=== PATIENT | female | born 1950 | race Caucasian/White ===

== ENCOUNTER 2017-07-27 17:54 | Emergency (ER) | payer OTHER ==
--- NOTE | 2017-07-27 18:19 | EDM.PDOC ---
ED HPI GENERAL MEDICAL PROBLEM - General Chief Complaint: Cardiovascular Problem Stated Complaint: CHEST PAINS Time Seen by Provider: 07/27/17 18:14 Source of Information: Reports: Patient, Provider History Limitations: Reports: No Limitations - History of Present Illness INITIAL COMMENTS - FREE TEXT/NARRATIVE: 66 yo white female sent to ED by medical provider for two days of Chest Heaviness. Pt. is s/p hip surgery one month ago and has not been compliant with anti-coagulant medication. Pt. found to have elevated D-dimer to [address] scan show filling defect in right atrium. Onset: Today Onset Date: 07/26/17 Onset Time: 12:00 Duration: Hour(s): Location: Reports: Chest Severity: Moderate Improves with: Reports: None Worsens with: Reports: None Associated Symptoms: Reports: Chest Pain - Related Data Allergies Allergy/AdvReac Type Severity Reaction Status Date / Time codeine Allergy Nausea and Verified 03/12/14 10:40 Vomiting diazepam [From Valium] Allergy Nausea and Verified 03/12/14 10:40 Vomiting zolpidem tartrate Allergy Cannot Verified 03/12/14 10:40 [From Ambien] Remember Home Meds: Home Meds Benzonatate 100 mg PO Q6HR PRN 03/12/14 [History] Levothyroxine 112 mcg PO DAILY 03/12/14 [History] Losartan/Hydrochlorothiazide [Losartan-HCTZ 100-25 MG] 1 each PO DAILY 03/12/14 [History] Naproxen Sodium 220 mg PO Q12HR PRN 03/12/14 [History] Omeprazole 20 mg PO DAILY 03/12/14 [History] Oxybutynin [Oxybutynin ER] 5 mg PO DAILY 03/12/14 [History] Simvastatin [Zocor] 40 mg PO BEDTIME 03/12/14 [History] Venlafaxine [Effexor XR] 150 mg PO DAILY 03/12/14 [History] Social & Family History - Alcohol Use Days Per Week of Alcohol Use: 0 - Recreational Drug Use Recreational Drug Use: No Drug Use in Last 12 Months: No ED ROS GENERAL - Review of Systems Review Of Systems: See Below Constitutional: Reports: No Symptoms HEENT: Reports: No Symptoms Respiratory: Reports: No Symptoms Cardiovascular: Reports: Chest Pain Endocrine: Reports: No Symptoms GI/Abdominal: Reports: No Symptoms : Reports: No Symptoms Musculoskeletal: Reports: No Symptoms Skin: Reports: No Symptoms Neurological: Reports: No Symptoms Psychiatric: Reports: No Symptoms Hematologic/Lymphatic: Reports: No Symptoms Immunologic: Reports: No Symptoms ED EXAM, GENERAL - Physical Exam Exam: See Below Exam Limited By: No Limitations General Appearance: Alert, No Apparent Distress Eye Exam: Bilateral Eye: EOMI, PERRL Ears: Normal External Exam Nose: Normal Inspection Throat/Mouth: Normal Inspection, Normal Oropharynx Head: Atraumatic Neck: Normal Inspection Respiratory/Chest: No Respiratory Distress Cardiovascular: Normal Peripheral Pulses, Regular Rate, Rhythm, No Edema Peripheral Pulses: 2+: Femoral (L), Femoral (R), Popliteal (L), Popliteal (R) GI/Abdominal: Normal Bowel Sounds, Soft Extremities: Normal Inspection Neurological: Alert, Oriented, CN II-XII Intact Psychiatric: Normal Affect Skin Exam: Warm, Dry Lymphatic: No Adenopathy Departure - Departure Time of Disposition: 18:19 Disposition: DC/Tfer to Other Reason for Transfer *Q: Other (Pt. need cardiac echo) Condition: Good Clinical Impression: Elevated d-dimer, Filling defect on imaging study Forms: ED Department Discharge, Interfacility Transfer SHIN
[2017-07-27] MEDS ORDERED: Enoxaparin 100 MG/1 ML Syringe SUBCUT ONE (18:25)
[2017-07-27] MEDS ORDERED: Sodium Chloride 0.9% 1,000 ML IV SCH (19:00)
[2017-07-27 19:51] VITALS: BP 145/82
== END 2017-07-27 19:10 | disposition other institution (70) ==
LOC: DL.ED 17:54
DX: R79.1 Abnormal coagulation profile (principal); R93.1 Abnormal findings on diagnostic imaging of heart and coronary circulation; Z88.5 Allergy status to narcotic agent; Z88.8 Allergy status to other drugs, medicaments and biological substances; Z79.899 Other long term (current) drug therapy
CPT/HCPCS: 96372; 99285; J1650; J7030

== ENCOUNTER 2018-01-14 12:37 | Emergency (ER) | payer OTHER ==
[2018-01-14 12:43] VITALS: BP 125/63
--- NOTE | 2018-01-14 13:29 | EDM.PDOC ---
Scribed by Alexandra Villareal 01/14/18 1328 for Javon Zuniga MD ED HPI GENERAL MEDICAL PROBLEM - General Chief Complaint: Lower Extremity Injury/Pain Stated Complaint: [id number] SPRAINED RIGHT ANKLE Time Seen by Provider: 01/14/18 12:50 Source of Information: Reports: Patient, RN, RN Notes Reviewed History Limitations: Reports: No Limitations - History of Present Illness INITIAL COMMENTS - FREE TEXT/NARRATIVE: Presents to ER by POV with c/o injury to Rt ankle sustained this morning from a ground level fall in her bathroom. Denies any other injury. Onset: Today Duration: Constant Location: Reports: Lower Extremity, Right Quality: Reports: Ache Severity: Moderate Improves with: Reports: Immobilization Worsens with: Reports: Movement (and wt bearing) Associated Symptoms: Reports: No Other Symptoms Right Ankle Pain Score (Numeric/FACES): 6 - Related Data Allergies Allergy/AdvReac Type Severity Reaction Status Date / Time codeine Allergy Nausea and Verified 01/14/18 12:43 Vomiting diazepam [From Valium] Allergy Nausea and Verified 01/14/18 12:43 Vomiting zolpidem tartrate Allergy Cannot Verified 01/14/18 12:43 [From Ambien] Remember Home Meds: Home Meds Levothyroxine 112 mcg PO DAILY 03/12/14 [History] Losartan/Hydrochlorothiazide [Losartan-HCTZ 100-25 MG] 1 each PO DAILY 03/12/14 [History] Naproxen Sodium 220 mg PO Q12HR PRN 03/12/14 [History] Omeprazole 20 mg PO DAILY 03/12/14 [History] Oxybutynin [Oxybutynin ER] 10 mg PO DAILY 03/12/14 [History] Simvastatin [Zocor] 40 mg PO BEDTIME 03/12/14 [History] Venlafaxine [Effexor XR] 150 mg PO DAILY 03/12/14 [History] Hydroxychloroquine Sulfate [Plaquenil] 200 mg PO DAILY 01/14/18 [History] metFORMIN [Glucophage] 500 mg PO BIDMEALS 01/14/18 [History] Past Medical History Cardiovascular History: Reports: High Cholesterol Genitourinary History: Reports: Urinary Incontinence Musculoskeletal History: Reports: Back Pain, Chronic, Osteoarthritis Psychiatric History: Reports: Depression Endocrine/Metabolic History: Reports: Hypothyroidism - Past Surgical History Musculoskeletal Surgical History: Reports: Hip Replacement Social & Family History - Tobacco Use Smoking Status *Q: Never Smoker Second Hand Smoke Exposure: No - Alcohol Use Days Per Week of Alcohol Use: 0 - Recreational Drug Use Recreational Drug Use: No Drug Use in Last 12 Months: No - Living Situation & Occupation Living situation: Reports: with Family Review of Systems - Review of Systems Review Of Systems: ROS reveals no pertinent complaints other than HPI. ED EXAM, GENERAL - Physical Exam Exam: See Below Exam Limited By: No Limitations General Appearance: Alert, WD/WN, No Apparent Distress Head: Atraumatic, Normocephalic Neck: Normal Inspection Respiratory/Chest: No Respiratory Distress Extremities: No Pedal Edema, Normal Capillary Refill, Other (Rt laterat ankle with minimal swelling, no visible bruising, skin is intact. Focal tenderness overlying Rt distal fibula and malleolus.) Neurological: Alert, Oriented, Normal Cognition, No Motor/Sensory Deficits Psychiatric: Normal Affect, Normal Mood Skin Exam: Warm, Dry, Intact, Normal Color, No Rash Course - Vital Signs Last Recorded V/S: Last Vital Signs Temp 36.6 C 01/14/18 12:39 Pulse 88 01/14/18 12:39 Resp 18 01/14/18 12:39 BP 125/63 01/14/18 12:39 Pulse Ox 98 01/14/18 12:39 - Radiology Interpretation Free Text/Narrative:: Xray Rt ankle: nondisplaced distal fibula fracture, see Rad. report. Departure - Departure Time of Disposition: 13:17 Disposition: Home, Self-Care 01 Condition: Fair Clinical Impression: Ankle fracture, right Qualifiers: Encounter type: initial encounter Fracture type: closed Qualified Code(s): S82.891A - Other fracture of right lower leg, initial encounter for closed fracture - Discharge Information Instructions: Ankle Fracture, [id number] Forms: ED Department Discharge Additional Instructions: Rest, ice and elevate the right ankle. Wear the splint boot, remove only to shower. No weight bearing on right foot, use crutches. Call [facility] Monday to schedule an appointment with Dr. Garcia. I have read and agree with the documentation that has been completed regarding this visit. By signing this record, I attest that the documentation was completed in my physical presence and is an accurate record of the encounter.
== END 2018-01-14 13:25 | disposition home or self-care (01) ==
LOC: DL.ED 12:37
DX: S82.891A Other fracture of right lower leg, initial encounter for closed fracture (principal); S82.831A Other fracture of upper and lower end of right fibula, initial encounter for closed fracture; E78.00 Pure hypercholesterolemia, unspecified; E03.9 Hypothyroidism, unspecified; F32.9 Major depressive disorder, single episode, unspecified; Z79.899 Other long term (current) drug therapy; Z88.8 Allergy status to other drugs, medicaments and biological substances; Z88.5 Allergy status to narcotic agent; W18.30XA Fall on same level, unspecified, initial encounter; Y92.89 Other specified places as the place of occurrence of the external cause
CPT/HCPCS: 73610-RT; 99283

== ENCOUNTER 2019-03-25 23:16 | Emergency (ER) | payer OTHER ==
[2019-03-25] MEDS ORDERED: Ondansetron 4 MG Tab.DIS PO ONE (23:17)
[2019-03-25] MEDS ORDERED: Sodium Chloride 0.9% 1,000 ML IV ONE (23:54)
[2019-03-26] LABS: ANION GAP 16.5; CHLORIDE,CL 99 mmol/L (101-111); SODIUM,NA 138 mmol/L (135-145)
[2019-03-26] MEDS ORDERED: Potassium Chloride 20 MEQ in Premix Bag 1 BAG IV ONE (00:09)
--- NOTE | 2019-03-26 02:29 | EDM.PDOC ---
ED HPI GENERAL MEDICAL PROBLEM - General Chief Complaint: Gastrointestinal Problem Stated Complaint: AMBULANCE-GASTRO Time Seen by Provider: 03/25/19 23:25 Source of Information: Reports: Patient History Limitations: Reports: No Limitations - History of Present Illness INITIAL COMMENTS - FREE TEXT/NARRATIVE: ED via EMS with c/o chills and vomiting multiple times tonight, yellow liquid with food. Notes lower abdominal pain and some burning with urination today. Hs hx of frequent UTI's Contacted urologist at [facility] this afternoon and was scheduled to have UA done tomorrow. Zofran given by EMS, nausea improving. - Related Data Allergies Allergy/AdvReac Type Severity Reaction Status Date / Time codeine Allergy Nausea and Verified 03/25/19 23:28 Vomiting diazepam [From Valium] Allergy Nausea and Verified 03/25/19 23:28 Vomiting zolpidem tartrate Allergy Cannot Verified 03/25/19 23:28 [From Ambien] Remember Home Meds: Home Meds Levothyroxine 100 mcg PO DAILY 03/12/14 [History] Losartan/Hydrochlorothiazide [Losartan-HCTZ 100-25 MG] 1 each PO DAILY 03/12/14 [History] Naproxen Sodium 220 mg PO Q12HR PRN 03/12/14 [History] Omeprazole 20 mg PO DAILY 03/12/14 [History] Oxybutynin [Oxybutynin ER] 10 mg PO DAILY 03/12/14 [History] Venlafaxine [Effexor XR] 150 mg PO DAILY 03/12/14 [History] Hydroxychloroquine Sulfate [Plaquenil] 200 mg PO BID 01/14/18 [History] metFORMIN [Glucophage] 500 mg PO BIDMEALS 01/14/18 [History] Azelastine/Fluticasone [Dymista Nasal [place]] 2 sprays NASBOTH DAILY 03/25/19 [ History] Celecoxib 200 mg PO DAILY 03/25/19 [History] Mirabegron [Myrbetriq] 50 mg PO DAILY 03/25/19 [History] Nabumetone [Relafen] 750 mg PO BID 03/25/19 [History] Rosuvastatin [Crestor] 10 mg PO DAILY 03/25/19 [History] Past Medical History Cardiovascular History: Reports: High Cholesterol Genitourinary History: Reports: Urinary Incontinence Musculoskeletal History: Reports: Back Pain, Chronic, Osteoarthritis Psychiatric History: Reports: Depression Endocrine/Metabolic History: Reports: Hypothyroidism - Past Surgical History GI Surgical History: Reports: Cholecystectomy Musculoskeletal Surgical History: Reports: Hip Replacement Social & Family History - Tobacco Use Smoking Status *Q: Never Smoker - Caffeine Use Caffeine Use: Reports: Coffee - Recreational Drug Use Recreational Drug Use: No - Living Situation & Occupation Living situation: Reports: with Family ED ROS GENERAL - Review of Systems Review Of Systems: ROS reveals no pertinent complaints other than HPI. ED EXAM, GI/ABD - Physical Exam Exam: See Below Exam Limited By: No Limitations General Appearance: Alert, No Apparent Distress, Obese Ears: Normal External Exam Nose: Normal Inspection Throat/Mouth: Normal Inspection Head: Atraumatic, Normocephalic Neck: Normal Inspection Respiratory/Chest: No Respiratory Distress, Lungs Clear, Normal Breath Sounds Cardiovascular: Normal Peripheral Pulses, Regular Rate, Rhythm GI/Abdominal Exam: Normal Bowel Sounds, No Organomegaly Back Exam: Normal Inspection, Full Range of Motion. No: CVA Tenderness (L), CVA Tenderness (R) Extremities: Normal Inspection, Normal Range of Motion Neurological: Alert, Oriented, Normal Cognition Psychiatric: Normal Affect, Normal Mood Skin Exam: Warm, Dry, Intact, Normal Color Course - Vital Signs Last Recorded V/S: Last Vital Signs Temp 99.0 F 03/26/19 02:39 Pulse 105 H 03/26/19 02:39 Resp 20 03/26/19 02:39 BP 119/60 03/26/19 02:39 Pulse Ox 96 03/26/19 02:39 - Orders/Labs/Meds Orders: Active Orders 24 hr Category Date Time Status CULTURE URINE [RM] Stat Lab 03/26/19 00:08 Received Labs: Laboratory Tests 03/25/19 03/25/19 03/25/19 Range/Units 23:28 23:35 23:35 WBC 12.5 H (5.0-10.0) 10^3/uL RBC 4.10 L (4.2-5.4) 10^6/uL Hgb 11.7 L (12.0-16.0) g/dL Hct 36.0 L (37.0-47.0) % MCV 87.8 (80-100) fL MCH 28.5 (27.0-34.0) pg MCHC 32.5 L (33.0-35.0) g/dL Plt Count 300 (150-450) 10^3/uL Neut % (Auto) 88.5 H (42.2-75.2) % Lymph % (Auto) 5.9 L (20.5-50.1) % [place] % (Auto) 3.7 (2-8) % Eos % (Auto) 1.5 (1.0-3.0) % Baso % (Auto) 0.4 (0.0-1.0) % Sodium 138 (135-145) mmol/L Potassium 2.5 L (3.6-5.0) mmol/L Chloride 99 L (101-111) mmol/L Carbon Dioxide 25.0 (21.0-31.0) mmol/L Anion Gap 16.5 BUN 11 (7-18) mg/dL Creatinine 0.7 (0.6-1.3) mg/dL Est Cr Clr Drug Dosing 67.34 mL/min Estimated GFR (MDRD) > 60 BUN/Creatinine Ratio 15.71 Glucose 149 H (74-105) mg/dL Calcium 8.2 L (8.4-10.2) mg/dl Total Bilirubin 0.5 (0.2-1.0) mg/dL AST 30 (10-42) IU/L ALT 22 (10-60) IU/L Alkaline Phosphatase 47 (42-121) IU/L Total Protein 6.6 L (6.7-8.2) g/dl Albumin 3.6 (3.2-5.5) g/dl Globulin 3.0 Albumin/Globulin Ratio 1.20 Amylase 40 (28-100) U/L Lipase 33 (22-51) U/L Urine Color Yellow (YELLOW) Urine Appearance Cloudy (CLEAR) Urine pH 6.0 (5.0-9.0) Ur Specific [place] 1.010 (1.005-1.030) Urine Protein Negative (NEGATIVE) Urine Glucose (UA) Negative (NEGATIVE) Urine Ketones Negative (NEGATIVE) Urine Occult Blood Moderate H (NEGATIVE) Urine Nitrite Negative (NEGATIVE) Urine Bilirubin Negative (NEGATIVE) Urine Urobilinogen 0.2 (0.2-1.0) mg/dL Ur Leukocyte Esterase Moderate H (NEGATIVE) Urine RBC 10-20 H /HPF Urine WBC >100 H (0-5/HPF) /HPF Ur Epithelial Cells Occasional /HPF Amorphous Sediment Rare (0/HPF) /HPF Urine Bacteria Moderate H (0-FEW/HPF) /HPF Urine Mucus Rare /LPF Meds: Medications Discontinued Medications Generic Name Dose Route Start Last Admin Trade Name John PRN Reason Stop Dose Admin Sodium Chloride 1,000 mls @ 999 mls/hr 03/25/19 23:54 03/25/19 23:59 Normal Saline IV 03/26/19 00:54 999 mls/hr .BOLUS ONE Administration Potassium Chloride 20 meq/ 100 mls @ 50 mls/hr 03/26/19 00:09 03/26/19 00:26 Premix IV 03/26/19 02:08 50 mls/hr ONETIME ONE Administration Ceftriaxone Sodium 1,000 mg/ 100 mls @ 200 mls/hr 03/26/19 00:36 03/26/19 00: 54 Sodium Chloride IV 03/26/19 01:05 200 mls/hr ONETIME ONE Administration Ondansetron HCl Confirm 03/26/19 02:45 03/26/19 02:48 Zofran Odt Administered 03/26/19 02:46 Not Given Dose 8 mg .ROUTE .STK-MED ONE Departure - Departure Time of Disposition: 02:25 Disposition: Home, Self-Care 01 Condition: Good Clinical Impression: UTI, Urinary tract infectious disease, Vomiting - Discharge Information *PRESCRIPTION DRUG MONITORING PROGRAM REVIEWED*: No *COPY OF PRESCRIPTION DRUG MONITORING REPORT IN PATIENT DESTIN: No Instructions: Urinary Tract Infection, Adult, [id number] Forms: ED Department Discharge Additional Instructions: Cipro 500mg one twice daily for one week zofran every 6 hours as needed for nausea recheck clinic this week for potassium level urgent follow up symtoms worsen with fever, flank pain weakness, vomiting - My Orders Last 24 Hours: My Active Orders 03/26/19 00:08 CULTURE URINE [RM] Stat - Assessment/Plan Last 24 Hours: My Active Orders 03/26/19 00:08 CULTURE URINE [RM] Stat
[2019-03-26 02:39] VITALS: BP 119/60
[2019-03-26] MEDS ORDERED: Ondansetron 4 MG Tab.DIS ONE (02:45)
== END 2019-03-26 03:25 | disposition home or self-care (01) ==
LOC: DL.ED 23:16
DX: N39.0 Urinary tract infection, site not specified (principal); R11.10 Vomiting, unspecified; M19.90 Unspecified osteoarthritis, unspecified site; F32.9 Major depressive disorder, single episode, unspecified; E03.9 Hypothyroidism, unspecified; Z79.84 Long term (current) use of oral hypoglycemic drugs; Z90.49 Acquired absence of other specified parts of digestive tract; Z79.899 Other long term (current) drug therapy; Z88.5 Allergy status to narcotic agent; Z88.8 Allergy status to other drugs, medicaments and biological substances
CPT/HCPCS: 36415; 80053; 81001; 82150; 83690; 85025; 87086; 87088; 87186; 96365; 96366; 96368; 99284; A4217; A9270; J0696; J3480; J7030; J7050

== ENCOUNTER 2020-02-05 05:35 | Day surgery (SDC) | payer OTHER ==
[2020-02-05] MEDS ORDERED: Midazolam 1 MG/ML 2 ML SDV IV ONE ×3 (05:36→06:32)
[2020-02-05] MEDS ORDERED: fentaNYL 100 MCG/2 ML SDV IV ONE ×3 (05:36→06:31)
[2020-02-05] MEDS ORDERED: Dextrose 5%-0.45% NaCl 1,000 ML IV SCH (06:05)
[2020-02-05] MEDS ORDERED: Midazolam 1 MG/ML 2 ML SDV ONE (06:16)
[2020-02-05] MEDS ORDERED: fentaNYL 100 MCG/2 ML SDV ONE (06:16)
--- NOTE | 2020-02-05 07:35 | OR ---
DATE: 02/05/2020 PROCEDURE: Esophagogastroduodenoscopy and multiple pinch biopsies. INSTRUMENT USED: [id number] Olympus video panendoscope. PREMEDICATIONS: No oral or topical anesthesia used. Fentanyl 100 mcg intravenous, Versed 2 mg intravenous. Nasal O2 cannula. The procedure was done under pulse oximetry, BP recording, and security monitor. INDICATION: The patient with multiple illnesses including diabetes mellitus and connective tissue disease, on multiple medications, with unexplained iron- deficiency anemia. Esophagogastroduodenoscopy is performed for detection of any active erosive lesions, malignancy also under consideration, H. pylori status to be determined, small bowel biopsies to be obtained if indicated, endoscopic hemostasis therapy if needed. DESCRIPTION OF PROCEDURE: The scope was passed with ease. Adequate visualization of the esophagus was made from proximal to distal areas. No upper esophageal lesions identified. No distal esophageal stricture. No uphill or downhill esophageal varices. No [place]lvarez tear. No evidence of erosive esophagitis by [place] criteria. No esophageal polyp or tumor mass identified. Z-line was seen at around 40 cm distal to the oral verge, configuration consistent with grade 1 by ZAP classification. No proximal gastric varices noted. Gastric fundus examination by retroflexion showed no polypoid lesions. No gastric ulcer, malignant mass, or vascular ectasia identified. Duodenal bulb showed no ulcer. Visualized second part of the duodenum was unremarkable. There was some prominence of pre-pyloric benign- appearing folds noted. Multiple pinch biopsies, 4 in number were taken from different areas of the second part of the duodenum and tissues were also obtained from the duodenal bulb at 9 and 12 o'clock, positions and sent for any histopathologic evidence of celiac disease. Multiple pinch biopsies were also obtained from the gastric antrum and the proximal body and sent for PyloriTek test for H. pylori and histopathology. No bleeding was noted from any of the visualized areas at the completion of examination. Photographs were taken of the duodenal bulb, gastric antrum, fundus, and distal esophagus. IMPRESSION: Normal study. The patient tolerated the procedure well. [facility] /[id number]
[2020-02-05 11:42] VITALS: BP 102/62; PULSE 83
== END 2020-02-05 09:57 | disposition home or self-care (01) ==
LOC: DL.ENDO 05:35
PROVIDERS: ATTEND Internal Medicine Gastroenterology
DX: K31.89 Other diseases of stomach and duodenum (principal); E11.9 Type 2 diabetes mellitus without complications; D50.9 Iron deficiency anemia, unspecified; E66.09 Other obesity due to excess calories; I10 Essential (primary) hypertension; E78.5 Hyperlipidemia, unspecified; G47.33 Obstructive sleep apnea (adult) (pediatric); N32.81 Overactive bladder; F41.1 Generalized anxiety disorder; F32.9 Major depressive disorder, single episode, unspecified; M19.90 Unspecified osteoarthritis, unspecified site; E03.9 Hypothyroidism, unspecified; Z98.890 Other specified postprocedural states; Z90.49 Acquired absence of other specified parts of digestive tract; Z88.5 Allergy status to narcotic agent; Z88.8 Allergy status to other drugs, medicaments and biological substances; Z87.19 Personal history of other diseases of the digestive system; Z68.35 Body mass index [BMI] 35.0-35.9, adult
CPT/HCPCS: 43239; 87077; J2250; J3010; J7042

== ENCOUNTER 2020-02-07 06:24 | Day surgery (SDC) | payer OTHER ==
[~2020-02-07 06:24] MED LIST: Dextrose 5%-0.45% NaCl 1,000 ML IV SCH; Midazolam 1 MG/ML 2 ML SDV ONE; Sodium Chloride 0.9% 10 ML Syringe FLUSH PRN; fentaNYL 100 MCG/2 ML SDV ONE
[2020-02-07] MEDS ORDERED: Midazolam 1 MG/ML 2 ML SDV IV ONE ×7 (06:25→07:29)
[2020-02-07] MEDS ORDERED: fentaNYL 100 MCG/2 ML SDV IV ONE ×5 (06:25→07:34)
--- NOTE | 2020-02-07 08:39 | OR ---
DATE: 02/07/2020 PROCEDURE: Total colonoscopy. INSTRUMENT USED: [id number]-[id number] Olympus video colonoscope. PREMEDICATIONS: Fentanyl 150 mcg intravenous, Versed 4 mg intravenous, nasal O2 cannula. The procedure was done under pulse oximetry, BP recording, and monitor worker. INDICATION: The patient with unexplained iron deficiency anemia. Colonoscopic examination is done for detection of any polypoid lesions and removal, endoscopic hemostasis therapy if needed. DESCRIPTION OF PROCEDURE: Initial rectal exam was unremarkable. Rigid anoscopy was normal. The colonoscope was passed with relative ease up to the ileocecal area. Photographs were taken of the normal-appearing cecum identified by landmarks of appendiceal orifice and double-bulged ileocecal folds. The colon was found to be tortuous and redundant. No bleeding was noted from any of the visualized areas at the commencement of the examination. Bowel preparation was found to be adequate, [place] scale 2 in the right and left colon, scale 3 in transverse colon, total score 7. No stricture. No vascular ectasia. No large isolated ulcerations seen. No evidence of diffuse inflammatory bowel disease in the form of friability, contact bleeding, or ulcerations. No polyp or tumor mass identified. Few scattered diverticula were noted in the distal left colon along with deformity. No bleeding was noted from any of the visualized areas at the completion of examination. IMPRESSION: Diverticulosis. The patient tolerated the procedure well. [facility] /[id number]
[2020-02-07 10:12] VITALS: BP 141/84; PULSE 71
== END 2020-02-07 10:22 | disposition home or self-care (01) ==
LOC: DL.ENDO 06:24
PROVIDERS: ATTEND Internal Medicine Gastroenterology
DX: K57.30 Diverticulosis of large intestine without perforation or abscess without bleeding (principal); D50.9 Iron deficiency anemia, unspecified; K63.89 Other specified diseases of intestine; E66.09 Other obesity due to excess calories; I10 Essential (primary) hypertension; E78.5 Hyperlipidemia, unspecified; G47.33 Obstructive sleep apnea (adult) (pediatric); N32.81 Overactive bladder; F41.1 Generalized anxiety disorder; F32.9 Major depressive disorder, single episode, unspecified; E11.9 Type 2 diabetes mellitus without complications; E03.9 Hypothyroidism, unspecified; M19.90 Unspecified osteoarthritis, unspecified site; Z90.49 Acquired absence of other specified parts of digestive tract; Z98.890 Other specified postprocedural states; Z87.19 Personal history of other diseases of the digestive system; Z68.35 Body mass index [BMI] 35.0-35.9, adult
CPT/HCPCS: 45378; J2250; J3010; J7042; G0121

== ENCOUNTER 2020-03-28 11:21 | Emergency (ER) | payer OTHER ==
[2020-03-28 10:48] VITALS: BP 151/91; PULSE 78
--- NOTE | 2020-03-28 11:21 | EDM.PDOC ---
ED HPI GENERAL MEDICAL PROBLEM - General Stated Complaint: dizziness Time Seen by Provider: 03/28/20 11:05 Source of Information: Reports: Patient History Limitations: Reports: No Limitations - History of Present Illness INITIAL COMMENTS - FREE TEXT/NARRATIVE: This 69 yo female patient reports to the ED with nausea and dizziness over the past 2 days. The patient reports she was in to seen Dr. Kelly yesterday morning for a follow-up in her anemia. She was advised that the labs he looked at were fine. The patient reports her nausea and dizziness started in the afternoon. The patient reports her symptoms have been intermittent since that time. The patient has attempted to get extra rest, eat and drink fluids with no changes in her symptoms. The patient did go to the walk-in clinic prior to being sent over to the ED. The patient reports she has a history of urinary tract infections and low potassium levels. The clinic did do a urinalysis during the visit in the clinic with no evidence of a UTI. The patient also has a history of diabetes, hypertension and hypothyroid. Onset Date: 03/27/20 Onset Time: 12:30 Duration: Intermittent Location: Reports: Generalized Quality: Reports: Other Severity: Moderate Improves with: Reports: None Worsens with: Reports: None Context: Reports: Other Associated Symptoms: Reports: Nausea/Vomiting (nausea only) - Related Data Allergies Allergy/AdvReac Type Severity Reaction Status Date / Time codeine Allergy Nausea and Verified 03/28/20 10:48 Vomiting diazepam [From Valium] Allergy Nausea and Verified 03/28/20 10:48 Vomiting zolpidem tartrate Allergy Cannot Verified 03/28/20 10:48 [From Ambien] Remember Home Meds: Home Meds Levothyroxine 100 mcg PO DAILY 03/12/14 [History] Losartan/Hydrochlorothiazide [Losartan-HCTZ 100-25 MG] 1 each PO DAILY 03/12/14 [History] Omeprazole 20 mg PO BID 03/12/14 [History] Oxybutynin [Oxybutynin ER] 10 mg PO DAILY 03/12/14 [History] Venlafaxine [Effexor XR] 150 mg PO DAILY 03/12/14 [History] Hydroxychloroquine Sulfate [Plaquenil] 200 mg PO BID 01/14/18 [History] Azelastine/Fluticasone [Dymista Nasal [place]] 2 sprays NASBOTH DAILY 03/25/19 [ History] Mirabegron [Myrbetriq] 50 mg PO DAILY 03/25/19 [History] Rosuvastatin [Crestor] 10 mg PO BEDTIME 03/25/19 [History] Celecoxib 100 mg PO BID 03/28/20 [History] Past Medical History HEENT History: Reports: Impaired Vision Cardiovascular History: Reports: High Cholesterol, Hypertension Respiratory History: Reports: Sleep Apnea, Other (See Below) Other Respiratory History: sarcodosis, states she is in remission. Pt reports CPAP at night Gastrointestinal History: Reports: Pancreatitis, Other (See Below) Other Gastrointestinal History: some kind of ulcers in the past Genitourinary History: Reports: Urinary Incontinence [employer] History: Reports: Musculoskeletal History: Reports: Arthritis, Back Pain, Chronic, Osteoarthritis Psychiatric History: Reports: Depression Endocrine/Metabolic History: Reports: Diabetes, Type II, Hypothyroidism Hematologic History: Reports: Anemia Immunologic History: Reports: None Oncologic (Cancer) History: Reports: None Other Dermatologic History: dry skin - Infectious Disease History Infectious Disease History: Reports: Chicken Pox, Measles, Shingles - Past Surgical History HEENT Surgical History: Reports: None Cardiovascular Surgical History: Reports: None Respiratory Surgical History: Reports: Lung Biopsies GI Surgical History: Reports: Cholecystectomy, Colonoscopy, EGD Female Surgical History: Reports: Breast Reduction, Tubal Ligation Musculoskeletal Surgical History: Reports: Hip Replacement Social & Family History - Tobacco Use Smoking Status *Q: Never Smoker Second Hand Smoke Exposure: No - Caffeine Use Caffeine Use: Reports: Coffee Caffeine Use Comment: 16 oz daily - Recreational Drug Use Recreational Drug Use: No - Living Situation & Occupation Living situation: Reports: with Family ED ROS GENERAL - Review of Systems Review Of Systems: Comprehensive ROS is negative, except as noted in HPI. ED EXAM, GENERAL - Physical Exam Exam: See Below Exam Limited By: No Limitations General Appearance: Alert, WD/WN, No Apparent Distress Eye Exam: Bilateral Eye: EOMI, Normal Inspection, PERRL Ears: Normal External Exam, Normal Canal, Hearing Grossly Normal, Normal TMs Nose: Normal Inspection, Normal Mucosa, No Blood Throat/Mouth: Normal Inspection, Normal Lips, Normal Teeth, Normal Gums, Normal Oropharynx, Normal Voice, No Airway Compromise Head: Atraumatic, Normocephalic Neck: Normal Inspection Respiratory/Chest: No Respiratory Distress, Lungs Clear, Normal Breath Sounds, No Accessory Muscle Use, Chest Non-Tender Cardiovascular: Normal Peripheral Pulses, Regular Rate, Rhythm, No Edema, No Gallop, No JVD, No Murmur, No Rub GI/Abdominal: Normal Bowel Sounds, Soft, Non-Tender, No Organomegaly, No Distention, No Abnormal Bruit, No Mass (Female) Exam: Deferred Rectal (Female) Exam: Deferred Back Exam: Normal Inspection, Full Range of Motion, NT Extremities: Normal Inspection, Normal Range of Motion, Non-Tender, Normal Capillary Refill, No Pedal Edema Neurological: Alert, Oriented, CN II-XII Intact, Normal Cognition, Normal Gait, Normal Reflexes, No Motor/Sensory Deficits, Other (Symptom increase with rapid movements of the head) Psychiatric: Normal Affect, Normal Mood Skin Exam: Warm, Dry, Intact, Normal Color, No Rash Lymphatic: No Adenopathy Course - Vital Signs Last Recorded V/S: Last Vital Signs Temp 37.0 C 03/28/20 10:45 Pulse 78 03/28/20 10:45 Resp 18 03/28/20 10:45 BP 151/91 H 03/28/20 10:45 Pulse Ox - Orders/Labs/Meds Orders: Active Orders 24 hr Category Date Time Status EKG Documentation Completion [RC] STAT Care 03/28/20 10:44 Ordered Head wo Cont [CT] Urgent Exams 03/28/20 11:39 Ordered Labs: Laboratory Tests 03/28/20 03/28/20 Range/Units 11:00 11:00 WBC 7.1 (5.0-10.0) 10^3/uL RBC 4.95 (4.2-5.4) 10^6/uL Hgb 13.4 D (12.0-16.0) g/dL Hct 42.0 (37.0-47.0) % MCV 84.8 D (80-100) fL MCH 27.1 (27.0-34.0) pg MCHC 31.9 L (33.0-35.0) g/dL Plt Count 327 (150-450) 10^3/uL Neut % (Auto) 61.0 (42.2-75.2) % Lymph % (Auto) 21.3 (20.5-50.1) % [place] % (Auto) 8.8 H (2-8) % Eos % (Auto) 7.9 H (1.0-3.0) % Baso % (Auto) 1.0 (0.0-1.0) % Sodium 140 (136-145) mmol/L Potassium 3.6 (3.5-5.1) mmol/L Chloride 100 (98-107) mmol/L Carbon Dioxide 31 (21-32) mmol/L Anion Gap 12.6 (7-13) mEq/L BUN 13 (7-18) mg/dL Creatinine 0.84 (0.55-1.02) mg/dL Est Cr Clr Drug Dosing 55.35 mL/min Estimated GFR (MDRD) > 60 BUN/Creatinine Ratio 15.5 (No establ ref range) Glucose 100 H (74-99) mg/dL Calcium 8.6 (8.5-10.1) mg/dL Total Bilirubin 0.3 (0.2-1.0) mg/dL AST 23 (15-37) U/L ALT 30 (14-59) U/L Alkaline Phosphatase 67 (46-116) U/L Troponin I < 0.017 (0.000-0.056) ng/mL Total Protein 7.1 (6.4-8.2) g/dL Albumin 3.7 (3.4-5.0) g/dL Globulin 3.4 Albumin/Globulin Ratio 1.1 Meds: Medications Discontinued Medications Generic Name Dose Route Start Last Admin Trade Name Freq PRN Reason Stop Dose Admin Meclizine HCl 12.5 mg 03/28/20 12:25 03/28/20 12:30 Antivert PO 03/28/20 12:26 12.5 mg ONETIME ONE Administration Ondansetron HCl 4 mg 03/28/20 12:26 03/28/20 12:30 Zofran Odt PO 03/28/20 12:27 4 mg ONETIME ONE Administration - Re-Assessments/Exams Free Text/Narrative Re-Assessment/Exam: 03/28/20 11:46 The patient was advised of the lab and EKG results. The patient reports feeling comfortable while lying down with increased symptoms when she moves. The patient was advised that a CT of her head was ordered. Departure - Departure Time of Disposition: 12:33 Disposition: Home, Self-Care 01 Condition: Fair Clinical Impression: Vertigo - Discharge Information *PRESCRIPTION DRUG MONITORING PROGRAM REVIEWED*: Not Applicable *COPY OF PRESCRIPTION DRUG MONITORING REPORT IN PATIENT DESTIN: Not Applicable Instructions: Dizziness, [id number] Forms: ED Department Discharge Care Plan Goals: The patient was advised of the examination, lab, EKG and CT results during the visit. The patient was given an oral dose of Zofran (for nausea) and Meclizine ( for dizziness) while in the ED. The patient was discharged with a script for Zofran (4 mg) #20 to take 1 by mouth every 6 hours as needed for nausea and Meclizine (12.5 mg) #20 to take 1 by mouth every 6 hours as needed for dizziness. The patient was encouraged to follow-up with her primary care facility next week for further evaluation and management (physical therapy and the [facility]). If the patient has any additional symptoms or concerns, the patient should either visit her primary care facility or return to the emergency department. Sepsis Event Note - Evaluation Sepsis Screening Result: No Definite Risk - Focused Exam Vital Signs: Vital Signs Temp Pulse Resp BP 03/28/20 10:45 37.0 C 78 18 151/91 H Date Exam was Performed: 03/28/20 Time Exam was Performed: 12:33 - My Orders Last 24 Hours: My Active Orders 03/28/20 10:44 EKG Documentation Completion [RC] STAT 03/28/20 11:39 Head wo Cont [CT] Urgent - Assessment/Plan Last 24 Hours: My Active Orders 03/28/20 10:44 EKG Documentation Completion [RC] STAT 03/28/20 11:39 Head wo Cont [CT] Urgent
[2020-03-28 11:37] LABS: ANION GAP 12.6 mEq/L (7-13); CHLORIDE,CL 100 mmol/L (98-107); SODIUM,NA 140 mmol/L (136-145)
[2020-03-28] MEDS ORDERED: Meclizine 12.5 MG Tab PO ONE (12:25)
[2020-03-28] MEDS ORDERED: Ondansetron 4 MG Tab.DIS PO ONE (12:26)
== END 2020-03-28 12:40 | disposition home or self-care (01) ==
LOC: DL.ED 11:21
DX: R42 Dizziness and giddiness (principal); E78.00 Pure hypercholesterolemia, unspecified; I10 Essential (primary) hypertension; M19.90 Unspecified osteoarthritis, unspecified site; E11.9 Type 2 diabetes mellitus without complications; F32.9 Major depressive disorder, single episode, unspecified; E03.9 Hypothyroidism, unspecified; Z79.899 Other long term (current) drug therapy; Z88.5 Allergy status to narcotic agent; Z88.8 Allergy status to other drugs, medicaments and biological substances
CPT/HCPCS: 36415; 70450; 80053; 84484; 85025; 93005; 99284; A9270